=== PATIENT | female | born 2005 | race Caucasian/White ===

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

== ENCOUNTER 2024-03-05 15:06 | Emergency (ER) | payer MEDICAID ==
[~2024-03-05] VITALS: Ht 162.6 cm; Wt 60.0 kg
[~2024-03-05 15:06] MED LIST: NITR-87 MT
[2024-03-05 15:09] VITALS: O2SAT 100
[2024-03-05 15:12] VITALS: BP 120/83; PULSE 93; TEMP 98.3; O2SAT 99
[2024-03-05] MEDS: ACETAMINOPHEN 325MG TABLET PO ONE (15:45)
[2024-03-05] MEDS ORDERED: QUET25TA MT (15:46)
[2024-03-05] MEDS ORDERED: ACET-2708 MT (15:46)
[2024-03-05 16:05] VITALS: RESP 16
== END 2024-03-05 16:05 | disposition home or self-care (01) ==
LOC: ER 15:06
DX: S06.0XAA Concussion with loss of consciousness status unknown, initial encounter (principal); F31.9 Bipolar disorder, unspecified; F19.90 Other psychoactive substance use, unspecified, uncomplicated; Z79.899 Other long term (current) drug therapy; Z90.89 Acquired absence of other organs; Y08.89XA Assault by other specified means, initial encounter; Y93.89 Activity, other specified; Y92.89 Other specified places as the place of occurrence of the external cause; Y99.8 Other external cause status
CPT/HCPCS: 99283